=== PATIENT | male | born 1960 | race Two or more races ===

== ENCOUNTER 2024-05-16 12:00 | Inpatient (IN) | payer MEDICAID, OTHER ==
[~2024-05-16] VITALS: Ht 172.7 cm; Wt 93.0 kg
[2024-05-16] MEDS: SODIUM CHLORIDE 0.9% 1,000 ML IV ONE (13:12)
[2024-05-16 13:21] LABS: Basophils # (auto) 0 10 ^3/uL (0-0.2); Basophils % (auto) 0.6 % (0.0-2.0); Eosinophils # (auto) 0.1 10 ^3/uL (0-0.8); Eosinophils % (auto) 1.3 % (0.0-7.0); Hematocrit 43.4 % (41.0-53.0); Hemoglobin 14.8 g/dL (13.5-17.5); Lymphocytes # (auto) 2.3 10 ^3/uL (0.4-5.4); Lymphocytes % (auto) 29.7 % (10.0-50.0); Mean Corpuscular Hemoglobin 32.2 pg (28.0-32.0); Mean Corpuscular Volume 94.7 fL (80.0-100.0); Monocytes # (auto) 0.8 10 ^3/uL (0-1.3); Monocytes % (auto) 9.6 % (0.0-12.0); Neutrophils # (auto) 4.6 10 ^3/uL (1.6-8.6); Neutrophils % (auto) 58.8 % (37.0-80.0); Nucleated Red Blood Cells % 0.1 %; Red Blood Cells 4.58 10^6/uL (4.5-5.90); Red Cell Distribution Width 13.4 % (11.8-14.3); White Blood Cell 7.9 10^3/uL (4.4-10.8)
[2024-05-16 13:22] LABS: Chloride 107 mmol/L (98-107); Potassium 4.2 mmol/L (3.5-5.1); Sodium 137 mmol/L (136-145)
[2024-05-16 13:23] LABS: Anion Gap 7 (5-15); Calcium 9.8 mg/dL (8.7-10.4); Carbon Dioxide 23 mmol/L (20-30)
[2024-05-16 13:28] LABS: BUN/Creatinine Ratio 14.2 (10.0-20.0); Blood Urea Nitrogen 15 mg/dL (9-23); Glucose 99 mg/dL (74-106)
[2024-05-16] MEDS ORDERED: HYDROcodone-ACET 5/325MG TAB PO PRN (17:00)
[2024-05-16] MEDS ORDERED: ACETAMINOPHEN 325 MG TAB PO PRN (17:00)
[2024-05-16] MEDS ORDERED: DOCUSATE SOD 100 MG CAP PO PRN (17:00)
[2024-05-16] MEDS ORDERED: MECLIZINE HCL 25 MG TAB PO PRN (17:00)
[2024-05-16] MEDS ORDERED: ONDANSETRON HCL 4 MG/2 ML VIAL IV PRN (17:00)
[2024-05-16] MEDS ORDERED: NITROGLYCERIN 0.4 MG SL TAB SL PRN (18:00)
[2024-05-16] MEDS ORDERED: MORPHINE SULFATE INJ 2 MG/ml SYRG IV PRN (18:00)
[2024-05-16] MEDS: SODIUM CHLORIDE 0.9% 1,000 ML IV SCH (23:37)
[2024-05-17] VITALS (9 sets, daily range): BP systolic 139–156; BP diastolic 82–94; PULSE 52–62; RESP 17–18; TEMP 97.2–97.8; O2SAT 96–99
[2024-05-17 09:36] LABS: Basophils # (auto) 0 10 ^3/uL (0-0.2); Basophils % (auto) 0.5 % (0.0-2.0); Eosinophils # (auto) 0.1 10 ^3/uL (0-0.8); Hematocrit 41.3 % (41.0-53.0); Hemoglobin 14.1 g/dL (13.5-17.5); Lymphocytes # (auto) 2.5 10 ^3/uL (0.4-5.4); Lymphocytes % (auto) 38.5 % (10.0-50.0); Mean Corpuscular Hemoglobin 32.3 pg (28.0-32.0); Mean Corpuscular Hgb Conc. 34.2 g/dL (32.0-36.0); Mean Corpuscular Volume 94.3 fL (80.0-100.0); Monocytes # (auto) 0.4 10 ^3/uL (0-1.3); Monocytes % (auto) 6.7 % (0.0-12.0); Neutrophils # (auto) 3.4 10 ^3/uL (1.6-8.6); Neutrophils % (auto) 53.3 % (37.0-80.0); Red Blood Cells 4.38 10^6/uL (4.5-5.90); White Blood Cell 6.4 10^3/uL (4.4-10.8)
[2024-05-17 10:09] LABS: Alanine Aminotransferase 20 U/L (7-40); Albumin 4.7 g/dL (3.2-4.8); Alkaline Phosphatase 68 U/L (46-116); Anion Gap 8 (5-15); Aspartate Aminotransferase 12 U/L (13-40); BUN/Creatinine Ratio 15.1 (10.0-20.0); Blood Urea Nitrogen 14 mg/dL (9-23); Calcium 9.9 mg/dL (8.7-10.4); Carbon Dioxide 24 mmol/L (20-30); Chloride 107 mmol/L (98-107); Glucose 124 mg/dL (74-106); Potassium 3.9 mmol/L (3.5-5.1); Sodium 139 mmol/L (136-145)
[2024-05-17 10:10] LABS: Bilirubin, Total 0.9 mg/dL (0.2-1.0); Total Protein 7.2 g/dL (5.7-8.2)
[2024-05-17] MEDS: amLODIPine BESYLATE 5 MG TAB PO SCH (16:32)
[2024-05-17] MEDS: MECLIZINE HCL 25 MG TAB PO SCH (16:32)
[2024-05-18 01:00] VITALS: BP 122/77; PULSE 67; RESP 18; TEMP 97.9; O2SAT 97
[2024-05-18 05:00] VITALS: BP 122/81; PULSE 70; RESP 17; TEMP 98.1; O2SAT 95
[2024-05-18 08:00] VITALS: PULSE 90; RESP 16; O2SAT 96
[2024-05-18 09:00] VITALS: BP 133/78; PULSE 90; RESP 16; TEMP 98.4; O2SAT 96
[2024-05-18] MEDS ORDERED: MECL12.586 PO ×2 (12:41→12:43)
[2024-05-18] MEDS ORDERED: AML5T PO ×2 (12:41→12:43)
[2024-05-18 13:00] VITALS: BP 150/92; PULSE 68; RESP 14; TEMP 98.5; O2SAT 95
[2024-05-18 13:34] VITALS: BP 150/92; PULSE 68; RESP 14; TEMP 98.5; O2SAT 95
== END 2024-05-18 15:00 | disposition home or self-care (01) | DRG 111 ==
LOC: ER 12:05 → OVERFLOW 17:48 → WEST WING 05-17 04:00
PROVIDERS: ADMIT Nurse Practitioner Family; ATTEND Nurse Practitioner Acute Care
DX: H81.13 Benign paroxysmal vertigo, bilateral (principal); E66.9 Obesity, unspecified; I10 Essential (primary) hypertension; Z68.32 Body mass index [BMI] 32.0-32.9, adult; Z79.899 Other long term (current) drug therapy
CPT/HCPCS: 36415; 70450; 80048; 80053; 84484; 85025; G0378